=== PATIENT | male | born 1945 | race African-American/Black ===

== ENCOUNTER 2018-10-30 14:05 | Inpatient (IN) | payer MEDICARE, OTHER ==
[~2018-10-30] VITALS: Ht 175.3 cm; Wt 87.1 kg
[2018-10-30] MEDS ORDERED: ZINC220C8 PO (14:31)
[2018-10-30] MEDS ORDERED: GABA-532 PO (14:31)
[2018-10-30] MEDS ORDERED: ACET-2154 PO ×2 (14:31)
[2018-10-30] MEDS ORDERED: MAGN400O6 PO (14:31)
[2018-10-30] MEDS ORDERED: ASCO-375 PO (14:31)
[2018-10-30] MEDS ORDERED: DOCU250C14 PO (14:31)
[2018-10-30] MEDS ORDERED: ARGI1POW17 PO (14:31)
[2018-10-30] MEDS ORDERED: ALBU18HF2 IH (14:31)
[2018-10-30] MEDS ORDERED: MULT1TAB73 PO (14:31)
[2018-10-30] MEDS ORDERED: POVI1MED TP (14:31)
[2018-10-30] MEDS ORDERED: ASPI81TA31 PO (14:31)
[2018-10-30] MEDS ORDERED: SENN-168 PO (14:31)
[2018-10-30] MEDS ORDERED: LORA0.5T PO (14:31)
[2018-10-30] MEDS ORDERED: LEVO25TA9 PO (14:31)
[2018-10-30] MEDS ORDERED: GEL100GE TD (14:31)
[2018-10-30] MEDS ORDERED: BISA10SU11 RC (14:31)
[2018-10-30] MEDS ORDERED: DIVA250T PO (14:31)
[2018-10-30] MEDS ORDERED: AMIN30LI24 PO (14:31)
[2018-10-30] MEDS ORDERED: CHOL100045 PO (14:31)
[2018-10-30] MEDS ORDERED: HYDR-4354 PO (14:31)
[2018-10-30] MEDS ORDERED: AMMO385C4 TP (14:31)
[2018-10-30] MEDS ORDERED: TIOT18CA3 INH (14:31)
[2018-10-30 14:41] LABS: BASOPHILS # (AUTO) 0.1 K/uL (0.0-8.0); BASOPHILS % (AUTO) 1.1 % (0.0-2.0); EOSINOPHILS # (AUTO) 0.9 K/uL (0.0-0.7); EOSINOPHILS % (AUTO) 8.9 % (0.0-7.0); HEMATOCRIT 40.3 % (36.7-47.1); HEMOGLOBIN 13.6 g/dL (12.5-16.3); LYMPHOCYTES # (AUTO) 2.5 K/uL (20.0-40.0); LYMPHOCYTES % (AUTO) 25.3 % (20.5-51.5); MEAN CORPUSCULAR HGB CONC 34 g/dL (32.5-36.3); MEAN CORPUSCULAR VOLUME 88.7 fL (73.0-96.2); MONOCYTES # (AUTO) 1.1 K/uL (2.0-10.0); MONOCYTES % (AUTO) 11.7 % (0.0-11.0); NEUTROPHILS # (AUTO) 5.1 K/uL (1.8-8.9); PLATELET COUNT (AUTO) 327 K/uL (152-348); RED BLOOD CELL COUNT(AUTO) 4.55 MIL/uL (4.06-5.63); WHITE BLOOD COUNT (AUTO) 9.7 K/uL (3.6-10.2)
[2018-10-30 14:42] LABS: CARBON DIOXIDE 30 mmol/L (21-32); CHLORIDE 102 mmol/L (98-107); CREATININE 1.2 mg/dL (0.6-1.3); GLUCOSE 118 mg/dL (74-106); POTASSIUM 4.3 mmol/L (3.5-5.1); UREA NITROGEN, BLOOD 18 mg/dL (7-18)
[2018-10-30 14:47] LABS: ALANINE AMINOTRANSFERASE 24 U/L (16-63); ALKALINE PHOSPHATASE 113 U/L (50-136); ASPARTATE AMINOTRANSFERASE 15 U/L (15-37); BILIRUBIN,DIRECT 0.1 mg/dL (0.0-0.2); BILIRUBIN,TOTAL 0.3 mg/dL (0.2-1.0); TOTAL PROTEIN, SERUM 7.8 g/dL (6.4-8.2)
[2018-10-30 14:49] LABS: *BILIRUBIN,URIN NEGATIVE (NEGATIVE); *BLOOD, URINE NEGATIVE (NEGATIVE); *CLARITY,URINE CLEAR (CLEAR); *COLOR,URINE YELLOW (YELLOW); *KETONES,URINE NEGATIVE (NEGATIVE); LEUKOCYTE ESTERASE ,URINE NEGATIVE (NEGATIVE); NITRITE, URINE NEGATIVE (NEGATIVE); UGLUCOSE NEGATIVE (NEGATIVE)
[2018-10-30 15:00] LABS: MUCUS,URINE FEW /LPF (0-FEW); SQUAMOUS EPITHELIAL CELL,UR FEW /HPF (NONE SEEN); WBC,URINE 0-3 /HPF (0-3)
--- NOTE | 2018-10-30 16:10 | NUR ---
Patient BIB private ambulance from [facility] sent here for weakness and poor appetite. Patient upon arrival A/Ox2. No complaint noted upon arrival. Has dressing on bilateral foot and sacral area. No distress noted
--- NOTE | 2018-10-30 16:48 | NUR ---
Transfered to 3rd floor tele via [facility]
[2018-10-30] MEDS ORDERED: [UNRECOGNIZED DRUG - OTHER] PO SCH (17:00)
[2018-10-30] MEDS ORDERED: MORPHINE SULFATE 2 MG/1 ML DISP.SYRIN IV PRN (17:00)
[2018-10-30] MEDS ORDERED: ONDANSETRON 4 MG/2 ML VIAL IV PRN (17:00)
[2018-10-30] MEDS ORDERED: ZOLPIDEM 5 MG TABLET PO PRN (17:00)
[2018-10-30] MEDS ORDERED: ALBUTEROL SULFATE 2.5 MG/3 ML NEBU NEB PRN (17:00)
[2018-10-30] MEDS ORDERED: ACETAMINOPHEN 325 MG TABLET PO PRN (17:00)
[2018-10-30] MEDS ORDERED: AMINO ACIDS PO SCH (17:00)
[2018-10-30] MEDS ORDERED: LORAZEPAM 1 MG TABLET PO PRN (17:00)
[2018-10-30] MEDS ORDERED: PROTEIN HYDROLYS PO SCH (17:00)
[2018-10-30] MEDS ORDERED: IPRATROPIUM BROMIDE 0.5 MG/2.5 ML NEBU NEB PRN (17:00)
[2018-10-30] MEDS ORDERED: Z GUARD REMEDY PASTE 57 GM TUBE TOP PRN (17:00)
[2018-10-30] MEDS ORDERED: MAGNESIUM HYDROXIDE 30 ML LIQUID UDC PO PRN (17:00)
[2018-10-30] MEDS ORDERED: BISACODYL 10 MG SUPP.RECT RC PRN (17:00)
[2018-10-30 17:08] VITALS: BP 102/64
[2018-10-30] MEDS: GABAPENTIN 100 MG CAPSULE PO SCH (17:56)
[2018-10-30 19:00] VITALS: BP 114/54
--- NOTE | 2018-10-30 19:21 | NUR ---
Patient admitted with no significant signs of distress. patient with stable vital signs . Tele monitor place; pictures taken of multiple wounds. Patient calm and cooperative. Medication compliant.
--- NOTE | 2018-10-30 19:30 | NUR ---
Patient refusing IV NS fluids. Nurse explained importance of receiving IV fluids, especially since was not eating at [facility] facility. Nurse explained risks/benefits for IV NS fluids three times, but patient still refusing IV fluids. Will continue to monitor.
--- NOTE | 2018-10-30 20:00 | NUR ---
Patient received resting comfortably in bed. Patient is awake, alert, and oriented x2. Patient has no complaints of pain or discomfort at this time. Patient is refusing prescribed IV fluids, with risks/benefits explained by nurse regarding receiving IV fluids. Patient states that he wants to go back to 'where his clothes are' and further states the reason for not eating at his facility is because they 'serve me the same food all of the time.' Nurse asked patient if he told staff at facility why he wasn't eating and patient stated 'they should know why if I send my tray back.' All safety and fall precautions in place. Call light and personal items are within reach at all times. Will continue to monitor.
[2018-10-30] MEDS: SENNOSIDES 1 TABLET PO SCH (21:09)
[2018-10-30] MEDS: IV NS 1000 ML 1,000 ML IV PRN (22:52)
[2018-10-31 00:48] VITALS: BP 153/55
[2018-10-31] MEDS: HYDROCODONE/APAP 10-325 MG TABLET PO PRN ×2 (04:22→21:23)
[2018-10-31 04:42] VITALS: BP 125/62
[2018-10-31 05:47] LABS: ALANINE AMINOTRANSFERASE 25 U/L (16-63); ALKALINE PHOSPHATASE 107 U/L (50-136); ASPARTATE AMINOTRANSFERASE 15 U/L (15-37); BILIRUBIN,TOTAL 0.4 mg/dL (0.2-1.0); CARBON DIOXIDE 31 mmol/L (21-32); CHLORIDE 102 mmol/L (98-107); CHOLESTEROL 170 mg/dL (<200); GLUCOSE 93 mg/dL (74-106); HDL CHOLESTEROL 31 mg/dL (40-60); MAGNESIUM 1.7 mg/dL (1.8-2.4); PHOSPHOROUS 3.6 mg/dL (2.5-4.9); POTASSIUM 4.2 mmol/L (3.5-5.1); TOTAL PROTEIN, SERUM 7.4 g/dL (6.4-8.2); TRIGLYCERIDES 112 MG/DL (30-150); UREA NITROGEN, BLOOD 17 mg/dL (7-18)
[2018-10-31 05:52] LABS: THYROID STIMULATING HORMONE 6.652 mIU/mL (0.358-3.740)
[2018-10-31] MEDS: LEVOTHYROXINE SODIUM 25 MCG TABLET PO SCH (06:00)
--- NOTE | 2018-10-31 06:00 | NUR ---
Patient slept intermittently throughout night. Complaint of pain in left arm was addressed with prescribed analgesic with no adverse side effects verbalized or observed. Patient is still refusing IV fluids but will take prescribed PO medications. All safety and fall precaution measures remain in place. Call light and persona items are within reach at all times.
[2018-10-31 06:09] LABS: BASOPHILS # (AUTO) 0.1 K/uL (0.0-8.0); BASOPHILS % (AUTO) 0.7 % (0.0-2.0); EOSINOPHILS # (AUTO) 0.7 K/uL (0.0-0.7); EOSINOPHILS % (AUTO) 7.3 % (0.0-7.0); HEMATOCRIT 38.6 % (36.7-47.1); HEMOGLOBIN 13.1 g/dL (12.5-16.3); LYMPHOCYTES % (AUTO) 30.8 % (20.5-51.5); MEAN CORPUSCULAR HEMOGLOBIN 30.4 uug (23.8-33.4); MEAN CORPUSCULAR HGB CONC 34 g/dL (32.5-36.3); MEAN CORPUSCULAR VOLUME 89.5 fL (73.0-96.2); MONOCYTES # (AUTO) 1.2 K/uL (2.0-10.0); NEUTROPHILS # (AUTO) 4.7 K/uL (1.8-8.9); NEUTROPHILS % (AUTO) 49.2 % (38.5-71.5); PLATELET COUNT (AUTO) 338 K/uL (152-348); RED BLOOD CELL COUNT(AUTO) 4.32 MIL/uL (4.06-5.63); WHITE BLOOD COUNT (AUTO) 9.7 K/uL (3.6-10.2)
--- NOTE | 2018-10-31 08:00 | NUR ---
AWAKE ALERT WATCHING TV DURING ROUNDS NO SS OF PAIN OR DISTRESS. CONTINUE TO REFUSE IVF IN SPITE OF ENCOURAGEMENT. 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
[2018-10-31] MEDS ORDERED: MAGNESIUM SULFATE/D5W 100 ML IV SCH (08:15)
[2018-10-31] MEDS: GABAPENTIN 100 MG CAPSULE PO SCH ×2 (08:59→17:08)
[2018-10-31] MEDS: DOCUSATE SODIUM 250 MG CAPSULE PO SCH (08:59)
[2018-10-31] MEDS: DIVALPROEX ER 250 MG TAB.SR.24H PO SCH (08:59)
[2018-10-31] MEDS: ASPIRIN 81 MG TAB.CHEW PO SCH (08:59)
[2018-10-31] MEDS: ZINC SULFATE 220 MG CAPSULE PO SCH (08:59)
[2018-10-31] MEDS: MULTIVITAMINS,THERAPEUTIC TABLET PO SCH (08:59)
[2018-10-31] MEDS: NICOTINE 21 MG/24HR PATCH TD SCH (08:59)
[2018-10-31] MEDS: CHOLECALCIFEROL 1,000 UNIT TABLET PO SCH (08:59)
[2018-10-31] MEDS: FAMOTIDINE 20 MG TABLET PO SCH (08:59)
[2018-10-31] MEDS ORDERED: Medication Not On Formulary EA (Multivitamins (Multivitamin) 1 EACH) PO SCH (09:00)
[2018-10-31] MEDS: PROTEIN SUPPLEMENT (PROSTAT) 30 ML LIQUID PO SCH ×2 (09:00→17:09)
[2018-10-31] MEDS: ASCORBIC ACID 500 MG TABLET PO SCH (09:00)
[2018-10-31] MEDS ORDERED: MAGNESIUM OXIDE 400 MG TABLET PO ONE (09:00)
[2018-10-31 11:15] VITALS: BP 102/52
--- NOTE | 2018-10-31 11:46 | NUR ---
PATIENT CONTINUE TO REFUSED IVF ORDERED ETCHER ENAMELING KI NOTIFIED AND MADE AWARE NO NEW ORDERS
[2018-10-31] MEDS: IV NS 1000 ML 1,000 ML IV PRN (12:51)
[2018-10-31 15:27] VITALS: BP 105/54
[2018-10-31 19:52] VITALS: BP 103/48
--- NOTE | 2018-10-31 20:00 | NUR ---
Patient received awake and resting comfortably in bed. Patient is alert and oriented x2 with no complaints of pain at this time. Patient's IV site is patent and intact with NS running at 75mL/hr. All safety and fall precaution measures are in place. Call light and personal items are within reach at all times. Will continue to monitor.
[2018-10-31] MEDS: ATORVASTATIN 10 MG TABLET PO SCH (20:28)
[2018-10-31] MEDS: SENNOSIDES 1 TABLET PO SCH (20:28)
--- NOTE | 2018-10-31 23:30 | NUR ---
Patient having trouble sleeping. Nurse provided prescribed PO ambien to assist patient in falling asleep. Will continue to monitor.
[2018-11-01 00:36] VITALS: BP 123/65
[2018-11-01] MEDS: IV NS 1000 ML 1,000 ML IV PRN ×2 (02:16→19:00)
[2018-11-01 04:37] VITALS: BP 124/64
[2018-11-01 05:57] LABS: BASOPHILS # (AUTO) 0.1 K/uL (0.0-8.0); BASOPHILS % (AUTO) 0.7 % (0.0-2.0); EOSINOPHILS # (AUTO) 0.7 K/uL (0.0-0.7); EOSINOPHILS % (AUTO) 7.6 % (0.0-7.0); HEMATOCRIT 37.4 % (36.7-47.1); HEMOGLOBIN 12.6 g/dL (12.5-16.3); LYMPHOCYTES # (AUTO) 2.7 K/uL (20.0-40.0); MEAN CORPUSCULAR HEMOGLOBIN 29.6 uug (23.8-33.4); MEAN CORPUSCULAR HGB CONC 34 g/dL (32.5-36.3); MEAN CORPUSCULAR VOLUME 88.2 fL (73.0-96.2); MONOCYTES # (AUTO) 1.1 K/uL (2.0-10.0); MONOCYTES % (AUTO) 12.8 % (0.0-11.0); NEUTROPHILS # (AUTO) 4.2 K/uL (1.8-8.9); NEUTROPHILS % (AUTO) 47.9 % (38.5-71.5); PLATELET COUNT (AUTO) 299 K/uL (152-348); RED BLOOD CELL COUNT(AUTO) 4.24 MIL/uL (4.06-5.63); WHITE BLOOD COUNT (AUTO) 8.7 K/uL (3.6-10.2)
[2018-11-01 06:00] LABS: CARBON DIOXIDE 28 mmol/L (21-32); CHLORIDE 104 mmol/L (98-107); CREATININE 0.9 mg/dL (0.6-1.3); GLUCOSE 87 mg/dL (74-106); MAGNESIUM 1.7 mg/dL (1.8-2.4); POTASSIUM 4.4 mmol/L (3.5-5.1); UREA NITROGEN, BLOOD 16 mg/dL (7-18)
[2018-11-01] MEDS: LEVOTHYROXINE SODIUM 25 MCG TABLET PO SCH (06:23)
--- NOTE | 2018-11-01 07:08 | NUR ---
Patient slept intermittently throughout night. Complaints of pain were addressed with prescribed analgesic with patient expressing relief. Patient expressed inability to sleep and was provided prescribed ambien which assisted patient in sleeping intermittently but not thoroughly. VS are wnl and patient is stable. Safety and fall precaution measures remain in place. Call light and personal items are within reach at all times.
[2018-11-01] MEDS ORDERED: MAGNESIUM OXIDE 400 MG TABLET PO ONE (07:30)
[2018-11-01] MEDS: NICOTINE 21 MG/24HR PATCH TD SCH ×2 (09:00→09:58)
[2018-11-01] MEDS: PROTEIN SUPPLEMENT (PROSTAT) 30 ML LIQUID PO SCH ×2 (09:00→17:52)
[2018-11-01] MEDS: DOCUSATE SODIUM 250 MG CAPSULE PO SCH (09:56)
[2018-11-01] MEDS: DIVALPROEX ER 250 MG TAB.SR.24H PO SCH (09:56)
[2018-11-01] MEDS: GABAPENTIN 100 MG CAPSULE PO SCH ×2 (09:56→17:52)
[2018-11-01] MEDS: ASPIRIN 81 MG TAB.CHEW PO SCH (09:56)
[2018-11-01] MEDS: FAMOTIDINE 20 MG TABLET PO SCH (09:56)
[2018-11-01] MEDS: ASCORBIC ACID 500 MG TABLET PO SCH (09:57)
[2018-11-01] MEDS: ZINC SULFATE 220 MG CAPSULE PO SCH (09:57)
[2018-11-01] MEDS: CHOLECALCIFEROL 1,000 UNIT TABLET PO SCH (09:57)
[2018-11-01] MEDS: MULTIVITAMINS,THERAPEUTIC TABLET PO SCH (09:57)
[2018-11-01 16:00] VITALS: BP 142/52
[2018-11-01 20:00] VITALS: BP 122/40
[2018-11-01] MEDS: ATORVASTATIN 10 MG TABLET PO SCH (20:35)
[2018-11-01] MEDS: SENNOSIDES 1 TABLET PO SCH (20:35)
[2018-11-02] VITALS: BP 125/53
[2018-11-02 04:00] VITALS: BP 158/62
--- NOTE | 2018-11-02 06:14 | NUR ---
Patient rested well in between care; incontinence care done; repositioned; refused blood draw this AM; refused dressing change to heels; continue to monitor; continue plan of care.
[2018-11-02] MEDS: LEVOTHYROXINE SODIUM 25 MCG TABLET PO SCH (06:18)
[2018-11-02] MEDS: IV NS 1000 ML 1,000 ML IV PRN (06:19)
--- NOTE | 2018-11-02 08:00 | NUR ---
Pt is in no acute distress. pt denies any c/o pain. Call light is within reach. Pt continues to refuse blood draw even after explaining dr ordered blood for further workup.
[2018-11-02] MEDS: FAMOTIDINE 20 MG TABLET PO SCH (08:31)
[2018-11-02] MEDS: ASCORBIC ACID 500 MG TABLET PO SCH (08:31)
[2018-11-02] MEDS: CHOLECALCIFEROL 1,000 UNIT TABLET PO SCH (08:31)
[2018-11-02] MEDS: GABAPENTIN 100 MG CAPSULE PO SCH (08:31)
[2018-11-02] MEDS: ASPIRIN 81 MG TAB.CHEW PO SCH (08:31)
[2018-11-02] MEDS: DOCUSATE SODIUM 250 MG CAPSULE PO SCH (08:31)
[2018-11-02] MEDS: ZINC SULFATE 220 MG CAPSULE PO SCH (08:31)
[2018-11-02] MEDS: MULTIVITAMINS,THERAPEUTIC TABLET PO SCH (08:31)
[2018-11-02] MEDS: DIVALPROEX ER 250 MG TAB.SR.24H PO SCH (08:32)
[2018-11-02] MEDS: NICOTINE 21 MG/24HR PATCH TD SCH (08:33)
[2018-11-02] MEDS: PROTEIN SUPPLEMENT (PROSTAT) 30 ML LIQUID PO SCH (08:39)
--- NOTE | 2018-11-02 10:00 | NUR ---
physical therapy evaluated pt. pt able to tolerate session.
[2018-11-02 11:33] VITALS: BP 132/65
--- NOTE | 2018-11-02 14:25 | NUR ---
Pt is in no acute distress. Update pix taken on right and left heel wound and sacral redness. Pt denies any c/o pain. HL d/c with catheter tip intact. Report Given to MARK Melton. D/c instructions given to patient.
== END 2018-11-02 14:25 | DRG 640 ==
LOC: ER 14:05 → TELE3 16:35
PROVIDERS: ADMIT Nurse Practitioner Acute Care; ATTEND Nurse Practitioner Acute Care
DX: E86.0 Dehydration (principal); R53.2 Functional quadriplegia; E44.1 Mild protein-calorie malnutrition; D68.59 Other primary thrombophilia; E03.9 Hypothyroidism, unspecified; D63.8 Anemia in other chronic diseases classified elsewhere; F25.0 Schizoaffective disorder, bipolar type; J44.9 Chronic obstructive pulmonary disease, unspecified; F41.9 Anxiety disorder, unspecified; E83.42 Hypomagnesemia; L89.159 Pressure ulcer of sacral region, unspecified stage; L89.899 Pressure ulcer of other site, unspecified stage; F17.210 Nicotine dependence, cigarettes, uncomplicated; G93.89 Other specified disorders of brain; R73.9 Hyperglycemia, unspecified
CPT/HCPCS: 36415; 70030-TC; 70450; 71045; 83605; 83735; 84100; 84443; 85025; 85730; 87040; 87086; 93005; 94664; A4663; C1758; G0378; J3590; J7030